=== PATIENT | female | born 1995 | race Two or more races ===

== ENCOUNTER → 2017-07-28 | Outpatient (REF) | payer OTHER | LOC: M SFHCLERA 14:12 | PROVIDERS: ATTEND Nurse Practitioner Family | DX: N75.0 Cyst of Bartholin's gland (principal) ==

== ENCOUNTER → 2017-08-04 | Outpatient (REF) | payer OTHER | LOC: M SFHCLERA 17:09 | PROVIDERS: ATTEND Nurse Practitioner Family | DX: R30.0 Dysuria (principal) ==

== ENCOUNTER → 2017-10-01 | Outpatient (REF) | payer OTHER ==
[2017-10-02 09:41] LABS: CHLAMYDIA DNA AMPLIFICATION NEGATIVE (NEGATIVE); GC DNA AMPLIFICATION NEGATIVE (NEGATIVE)
== END ==
LOC: M SFHCLERA 11:46
DX: R30.0 Dysuria (principal)
CPT/HCPCS: 87186

== ENCOUNTER → 2017-12-25 | Outpatient (REF) | payer OTHER | LOC: M SFHCLERA 10:59 | DX: N30.00 Acute cystitis without hematuria (principal) ==